=== PATIENT | female | born 1995 | race Two or more races ===

== ENCOUNTER 2021-02-05 06:25 | Inpatient (IN) | payer OTHER ==
[~2021-02-05] VITALS: Ht 152.4 cm; Wt 74.8 kg
[2021-02-05] MEDS ORDERED: PRENATAL + DHA1 EAC1 (07:24)
[2021-02-08] MEDS ORDERED: FUSION PLUS CA1 EACH PO (07:30)
[2021-02-08] MEDS ORDERED: IBU400 MG PO (07:30)
== END 2021-02-08 11:19 | disposition home or self-care (01) | DRG 807 ==
LOC: SURG-SUITE 06:25 → LDR 06:25 → SURG-SUITE 02-06 06:39
PROVIDERS: ADMIT Obstetrics & Gynecology; ATTEND Obstetrics & Gynecology
PROC: 10E0XZZ Delivery of Products of Conception, External Approach (ICD-10-PCS; principal; 2021-02-05)
PROC: 4A1HXFZ Monitoring of Products of Conception, Cardiac Rhythm, External Approach (ICD-10-PCS; 2021-02-05)
PROC: 3E0P7VZ Introduction of Hormone into Female Reproductive, Via Natural or Artificial Opening (ICD-10-PCS; 2021-02-05)
DX: O80 Encounter for full-term uncomplicated delivery (principal); Z37.0 Single live birth; Z3A.39 39 weeks gestation of pregnancy; Z20.822 Contact with and (suspected) exposure to COVID-19